=== PATIENT | female | born 1955 | race African-American/Black ===

== ENCOUNTER 2017-09-08 22:22 | Inpatient (IN) ==
[2017-09-08] MEDS ORDERED: AZITHROMYCIN INJ 500 MG in SODIUM CHLORIDE 0.9% 250 ML IV STA (23:11)
[2017-09-08] MEDS ORDERED: SODIUM CHLORIDE 0.9% 500 ML IV ONE (23:26)
[2017-09-08] MEDS ORDERED: LEVALBUTEROL 1.25 MG/3 ML NEB RESP TX STA (23:26)
[2017-09-08] MEDS ORDERED: methylPREDNISolone SOD SUC 125 MG/2 ML VIAL IV STA (23:27)
[2017-09-08] MEDS ORDERED: AZITHROMYCIN 500 MG VIAL IV ONE (23:35)
[2017-09-09] MEDS ORDERED: ALBUTEROL/IPRATROPIUM 3 ML NEB RESP TX PRN (00:48)
[2017-09-09] MEDS ORDERED: GLUCAGON 1 MG VIAL IM PRN (00:48)
[2017-09-09] MEDS ORDERED: DEXTROSE 50% 25 GM/50 ML VIAL IV PRN (00:48)
[2017-09-09] MEDS ORDERED: MORPHINE 2 MG/1 ML SYRINGE IV PRN (00:48)
[2017-09-09] MEDS ORDERED: ACETAMINOPHEN 325 MG TABLET PO PRN (00:48)
[2017-09-09] MEDS ORDERED: ONDANSETRON 4 MG/2 ML VIAL IV PRN (00:48)
[2017-09-09] MEDS ORDERED: traZODone 50 MG TABLET PO PRN (00:48)
[2017-09-09] MEDS: ALBUTEROL/IPRATROPIUM 3 ML NEB RESP TX SCH ×4 (01:41→19:58)
[2017-09-09 01:46] LABS: Basophils # 0.1 10*3/uL (0.0-0.2); Basophils % 0.3 % (0.0-0.8); Hematocrit 34.5 VOL% (35.7-47.0); Immature Granulocytes % 2.9 %; Immature Granulocytes Absolute 1.11 #; Lymphocytes # 1.5 10*3/uL (1.4-4.0); Mean Corpuscular HGB Conc 31.9 GM/DL (32-36); Mean Corpuscular Hemoglobin 25 PG (27-34); Mean Corpuscular Volume 78.1 FL (87-102); Monocytes # 2.1 10*3/uL (0.11-0.8); Monocytes % 5.5 % (1.7-12.7); Neutrophils # 33.1 10*3/uL (1.4-7.4); Neutrophils % 87.3 % (38.7-73.9); Platelet Count 315 T/CUMM (130-400); Red Blood Count 4.42 MC/CUMM (3.8-5.5); Red Cell Distribution Width 15.2 % (9.3-17.3)
[2017-09-09 02:07] LABS: Lactic Acid 1.1 MMOL/L (0.4-2.0)
[2017-09-09 02:14] LABS: Albumin 2.8 G/DL (3.4-5.0); Bilirubin,Total 1.4 MG/DL (0.2-1.0); Calcium 7.8 MG/DL (8.5-10.1); Osmolality,Calculated 280.3 MOS/KG (273-304); Potassium 3.7 MMOL/L (3.5-5.1); Total Protein 5.9 G/DL (6.4-8.3)
[2017-09-09 02:19] LABS: Thyroid Stimulating Hormone 0.358 uIU/ml (0.358-3.74)
[2017-09-09] MEDS: SODIUM CHLORIDE 0.9% 1,000 ML IV SCH ×3 (02:24→20:47)
[2017-09-09] MEDS: PIPERACILLIN/TAZOBACTAM 3,375 MG in SODIUM CHLORIDE 0.9% 100 ML IV SCH ×3 (02:40→17:09)
[2017-09-09] MEDS ORDERED: LEVOFLOXACIN INJ 750 MG in PREMIX 1 EACH IV SCH (03:00)
[2017-09-09 03:46] LABS: Band Neutrophils 10 % (0-10); Lymphocytes 7 % (20-55); Segmented Neutrophils 76 % (50-85)
[2017-09-09 03:48] LABS: Burr Cells Few; Hypochromasia 1+; Platelet Estimate Normal; Target Cells Few
[2017-09-09 03:49] LABS: Total Cells Counted 100
[2017-09-09] MEDS: INSULIN REGULAR 100 UNIT/ML SUBCUT SCH ×4 (08:16→20:47)
[2017-09-09] MEDS: DOCUSATE SODIUM 100 MG CAPSULE PO SCH ×2 (09:28→20:47)
[2017-09-09] MEDS: ENOXAPARIN 100 MG/ML SYRINGE SUBCUT SCH ×2 (09:30→20:47)
[2017-09-09] MEDS: PANTOPRAZOLE 40 MG VIAL IV SCH (09:32)
[2017-09-09] MEDS: AZITHROMYCIN INJ 500 MG in SODIUM CHLORIDE 0.9% 250 ML IV SCH (09:36)
[2017-09-09] MEDS: methylPREDNISolone SOD SUC 40 MG/1 ML VIAL IV SCH (11:39)
[2017-09-10] MEDS: PIPERACILLIN/TAZOBACTAM 3,375 MG in SODIUM CHLORIDE 0.9% 100 ML IV SCH ×3 (00:01→18:34)
[2017-09-10] MEDS: methylPREDNISolone SOD SUC 40 MG/1 ML VIAL IV SCH ×2 (00:01→12:06)
[2017-09-10] MEDS: ALBUTEROL/IPRATROPIUM 3 ML NEB RESP TX SCH ×2 (01:57→07:08)
[2017-09-10] MEDS: SODIUM CHLORIDE 0.9% 1,000 ML IV SCH ×3 (03:24→19:34)
[2017-09-10 05:44] LABS: Calcium 8.1 MG/DL (8.5-10.1); Osmolality,Calculated 290.8 MOS/KG (273-304); Potassium 3.6 MMOL/L (3.5-5.1)
[2017-09-10 07:41] LABS: Basophils # 0.1 10*3/uL (0.0-0.2); Basophils % 0.2 % (0.0-0.8); Hematocrit 33.6 VOL% (35.7-47.0); Hemoglobin 10.5 GM/DL (12.0-16.0); Immature Granulocytes % 1.4 %; Immature Granulocytes Absolute 0.48 #; Lymphocytes # 1.1 10*3/uL (1.4-4.0); Lymphocytes % 3.3 % (21.3-54.2); Mean Corpuscular HGB Conc 31.3 GM/DL (32-36); Mean Corpuscular Hemoglobin 25 PG (27-34); Mean Corpuscular Volume 79.2 FL (87-102); Mean Platelet Volume 10.8 FL (9.6-12.0); Monocytes # 2.4 10*3/uL (0.11-0.8); Monocytes % 6.9 % (1.7-12.7); Neutrophils # 30.1 10*3/uL (1.4-7.4); Neutrophils % 88.2 % (38.7-73.9); Platelet Count 298 T/CUMM (130-400); Red Blood Count 4.24 MC/CUMM (3.8-5.5); Red Cell Distribution Width 16.1 % (9.3-17.3); White Blood Count 34.1 T/CUMM (4-12)
[2017-09-10 08:05] LABS: Lymphocytes 8 % (20-55); Segmented Neutrophils 86 % (50-85); Total Cells Counted 100
[2017-09-10 08:06] LABS: Burr Cells 2+; Platelet Estimate Adequate; Polychromasia Slight; Target Cells Slight
[2017-09-10] MEDS: INSULIN REGULAR 100 UNIT/ML SUBCUT SCH ×4 (08:17→20:46)
[2017-09-10] MEDS: ENOXAPARIN 100 MG/ML SYRINGE SUBCUT SCH ×2 (08:18→20:43)
[2017-09-10] MEDS: PANTOPRAZOLE 40 MG VIAL IV SCH (08:18)
[2017-09-10] MEDS: guaiFENesin/DM ER 600-30 MG TABLET PO PRN ×2 (08:18→20:39)
[2017-09-10] MEDS: DOCUSATE SODIUM 100 MG CAPSULE PO SCH ×2 (08:18→20:38)
[2017-09-10] MEDS ORDERED: ALBUTEROL 2.5 MG/3 ML NEB RESP TX SCH (11:30)
[2017-09-10] MEDS: METOPROLOL TARTRATE 25 MG TABLET PO SCH ×2 (12:39→20:38)
[2017-09-10] MEDS: AZITHROMYCIN INJ 500 MG in SODIUM CHLORIDE 0.9% 250 ML IV SCH (13:13)
[2017-09-10] MEDS: hydrOXYzine HCL 25 MG TABLET PO SCH ×2 (15:10→20:38)
[2017-09-10] MEDS: ALBUTEROL 2.5 MG/3 ML NEB RESP TX SCH (15:22)
[2017-09-10] MEDS: ALPRAZolam 0.5 MG TABLET PO SCH (20:39)
[2017-09-10] MEDS: METOCLOPRAMIDE 10 MG TABLET PO SCH (20:39)
[2017-09-10] MEDS: CLOTRIMAZOLE 1% CREAM 15 GM TUBE TOP SCH (20:52)
[2017-09-10] MEDS: PREGABALIN 50 MG CAPSULE PO SCH (21:05)
[2017-09-11] MEDS: methylPREDNISolone SOD SUC 40 MG/1 ML VIAL IV SCH (01:28)
[2017-09-11] MEDS: PIPERACILLIN/TAZOBACTAM 3,375 MG in SODIUM CHLORIDE 0.9% 100 ML IV SCH ×3 (01:29→19:25)
[2017-09-11] MEDS: ALBUTEROL 2.5 MG/3 ML NEB RESP TX SCH ×4 (01:39→22:39)
[2017-09-11] MEDS: SODIUM CHLORIDE 0.9% 1,000 ML IV SCH ×3 (04:01→16:50)
[2017-09-11 04:38] LABS: Basophils % 0.2 % (0.0-0.8); Hemoglobin 10.1 GM/DL (12.0-16.0); Immature Granulocytes % 2.1 %; Immature Granulocytes Absolute 0.51 #; Lymphocytes # 1.2 10*3/uL (1.4-4.0); Mean Corpuscular HGB Conc 31.6 GM/DL (32-36); Mean Corpuscular Hemoglobin 25 PG (27-34); Mean Platelet Volume 10.9 FL (9.6-12.0); Monocytes % 4.1 % (1.7-12.7); NRBC # 0.02 10*3/uL; Neutrophils % 88.6 % (38.7-73.9); Platelet Count 307 T/CUMM (130-400); Red Cell Distribution Width 16.1 % (9.3-17.3); White Blood Count 24.8 T/CUMM (4-12)
[2017-09-11 05:14] LABS: Calcium 7.7 MG/DL (8.5-10.1); Osmolality,Calculated 288.1 MOS/KG (273-304); Potassium 3.9 MMOL/L (3.5-5.1)
[2017-09-11 05:33] LABS: Lymphocytes 5 % (20-55); Segmented Neutrophils 93 % (50-85); Total Cells Counted 100
[2017-09-11 05:36] LABS: Platelet Estimate Normal; Polychromasia Slight; Target Cells Few
[2017-09-11] MEDS: METOCLOPRAMIDE 10 MG TABLET PO SCH ×2 (08:09→21:33)
[2017-09-11] MEDS: ENOXAPARIN 100 MG/ML SYRINGE SUBCUT SCH ×2 (08:09→21:33)
[2017-09-11] MEDS: LEVOTHYROXINE 50 MCG TABLET PO SCH (08:09)
[2017-09-11] MEDS: METOPROLOL TARTRATE 25 MG TABLET PO SCH ×2 (08:09→21:34)
[2017-09-11] MEDS: DOCUSATE SODIUM 100 MG CAPSULE PO SCH ×2 (08:09→21:34)
[2017-09-11] MEDS: MONTELUKAST 10 MG TABLET PO SCH (08:09)
[2017-09-11] MEDS: CETIRIZINE 10 MG TABLET PO SCH (08:09)
[2017-09-11] MEDS: hydrOXYzine HCL 25 MG TABLET PO SCH ×3 (08:09→21:34)
[2017-09-11] MEDS: PANTOPRAZOLE 40 MG VIAL IV SCH (08:09)
[2017-09-11] MEDS: ALPRAZolam 0.5 MG TABLET PO SCH ×2 (08:10→21:34)
[2017-09-11] MEDS: INSULIN REGULAR 100 UNIT/ML SUBCUT SCH ×4 (08:10→21:34)
[2017-09-11] MEDS: CLOTRIMAZOLE 1% CREAM 15 GM TUBE TOP SCH ×2 (08:10→22:20)
[2017-09-11] MEDS ORDERED: VILANTEROL INH SCH (09:00)
[2017-09-11] MEDS ORDERED: FLUTICASONE INH SCH (09:00)
[2017-09-11] MEDS: INSULIN GLARGINE 100 UNIT/ML SUBCUT SCH (13:27)
[2017-09-11] MEDS: amLODIPine 10 MG TABLET PO SCH (16:49)
[2017-09-11] MEDS: AZITHROMYCIN INJ 500 MG in SODIUM CHLORIDE 0.9% 250 ML IV SCH (16:49)
[2017-09-11] MEDS: PREGABALIN 50 MG CAPSULE PO SCH (21:35)
[2017-09-12] MEDS: PIPERACILLIN/TAZOBACTAM 3,375 MG in SODIUM CHLORIDE 0.9% 100 ML IV SCH ×2 (01:59→10:32)
[2017-09-12] MEDS: SODIUM CHLORIDE 0.9% 1,000 ML IV SCH ×3 (03:16→17:33)
[2017-09-12 06:15] LABS: Basophils # 0.1 10*3/uL (0.0-0.2); Basophils % 0.7 % (0.0-0.8); Eosinophils # 0.2 10*3/uL (0.0-0.87); Eosinophils % 0.9 % (0.00-10.9); Hemoglobin 11.4 GM/DL (12.0-16.0); Immature Granulocytes % 4.2 %; Immature Granulocytes Absolute 0.75 #; Lymphocytes # 4.2 10*3/uL (1.4-4.0); Lymphocytes % 23.5 % (21.3-54.2); Mean Corpuscular HGB Conc 32.6 GM/DL (32-36); Mean Corpuscular Hemoglobin 25 PG (27-34); Mean Corpuscular Volume 76.4 FL (87-102); Mean Platelet Volume 10.5 FL (9.6-12.0); Monocytes # 1.8 10*3/uL (0.11-0.8); Monocytes % 9.9 % (1.7-12.7); NRBC # 0.04 10*3/uL; Neutrophils # 10.9 10*3/uL (1.4-7.4); Neutrophils % 60.8 % (38.7-73.9); Platelet Count 371 T/CUMM (130-400); Red Blood Count 4.58 MC/CUMM (3.8-5.5); Red Cell Distribution Width 15.9 % (9.3-17.3)
[2017-09-12 06:35] LABS: Eosinophils 1 % (0-10); Giant Platelets Few; Hypochromasia 1+; Lymphocytes 34 % (20-55); Platelet Estimate Adequate; Segmented Neutrophils 57 % (50-85); Total Cells Counted 100
[2017-09-12 06:45] LABS: Calcium 8.6 MG/DL (8.5-10.1); Osmolality,Calculated 284.8 MOS/KG (273-304); Potassium 3.1 MMOL/L (3.5-5.1)
[2017-09-12] MEDS: ALBUTEROL 2.5 MG/3 ML NEB RESP TX SCH ×2 (08:18→14:16)
[2017-09-12] MEDS ORDERED: methylPREDNISolone SOD SUC 40 MG/1 ML VIAL IV SCH (09:00)
[2017-09-12] MEDS: DOCUSATE SODIUM 100 MG CAPSULE PO SCH ×2 (09:59→21:19)
[2017-09-12] MEDS: METOPROLOL TARTRATE 25 MG TABLET PO SCH (09:59)
[2017-09-12] MEDS: hydrOXYzine HCL 25 MG TABLET PO SCH ×3 (09:59→21:20)
[2017-09-12] MEDS: MONTELUKAST 10 MG TABLET PO SCH (10:00)
[2017-09-12] MEDS: METOCLOPRAMIDE 10 MG TABLET PO SCH ×2 (10:00→21:20)
[2017-09-12] MEDS: LEVOTHYROXINE 50 MCG TABLET PO SCH (10:00)
[2017-09-12] MEDS: ALPRAZolam 0.5 MG TABLET PO SCH ×2 (10:00→21:19)
[2017-09-12] MEDS: CLOTRIMAZOLE 1% CREAM 15 GM TUBE TOP SCH ×2 (10:00→21:22)
[2017-09-12] MEDS: amLODIPine 10 MG TABLET PO SCH (10:00)
[2017-09-12] MEDS: CETIRIZINE 10 MG TABLET PO SCH (10:01)
[2017-09-12] MEDS: ENOXAPARIN 100 MG/ML SYRINGE SUBCUT SCH (10:06)
[2017-09-12] MEDS: INSULIN GLARGINE 100 UNIT/ML SUBCUT SCH (10:10)
[2017-09-12] MEDS: PANTOPRAZOLE 40 MG VIAL IV SCH (10:18)
[2017-09-12] MEDS: INSULIN REGULAR 100 UNIT/ML SUBCUT SCH ×4 (10:33→21:18)
[2017-09-12] MEDS ORDERED: LEVALBUTEROL 0.63 MG/3 ML NEB RESP TX PRN (13:09)
[2017-09-12] MEDS ORDERED: METOPROLOL TARTRATE 25 MG TABLET PO SCH (13:10)
[2017-09-12] MEDS ORDERED: hydrALAZINE 20 MG/1 ML VIAL IV PRN (14:03)
[2017-09-12] MEDS: AZITHROMYCIN INJ 500 MG in SODIUM CHLORIDE 0.9% 250 ML IV SCH (14:12)
[2017-09-12] MEDS: LEVOFLOXACIN 750 MG TABLET PO SCH (15:27)
[2017-09-12] MEDS: CARVEDILOL 12.5 MG TABLET PO SCH (21:20)
[2017-09-12] MEDS: PREGABALIN 50 MG CAPSULE PO SCH (21:23)
[2017-09-13 04:48] LABS: Basophils # 0.1 10*3/uL (0.0-0.2); Basophils % 0.5 % (0.0-0.8); Eosinophils # 0.1 10*3/uL (0.0-0.87); Eosinophils % 0.4 % (0.00-10.9); Hemoglobin 10.6 GM/DL (12.0-16.0); Lymphocytes # 3.4 10*3/uL (1.4-4.0); Lymphocytes % 18.8 % (21.3-54.2); Mean Corpuscular HGB Conc 32.1 GM/DL (32-36); Mean Corpuscular Hemoglobin 25 PG (27-34); Mean Corpuscular Volume 76.9 FL (87-102); Mean Platelet Volume 10.2 FL (9.6-12.0); Monocytes # 1.9 10*3/uL (0.11-0.8); Monocytes % 10.7 % (1.7-12.7); NRBC # 0.05 10*3/uL; Neutrophils # 11.6 10*3/uL (1.4-7.4); Neutrophils % 64.6 % (38.7-73.9); Platelet Count 357 T/CUMM (130-400); Red Blood Count 4.29 MC/CUMM (3.8-5.5); Red Cell Distribution Width 15.4 % (9.3-17.3)
[2017-09-13 05:10] LABS: Band Neutrophils 2 % (0-10); Eosinophils 2 % (0-10); Hypochromasia 1+; Lymphocytes 20 % (20-55); Myelocytes 1 %; Platelet Estimate Adequate; Segmented Neutrophils 69 % (50-85); Total Cells Counted 100
[2017-09-13 05:11] LABS: Giant Platelets Few; Macrocytosis Slight; Ovalocytes Slight; Polychromasia Slight; Target Cells Few
[2017-09-13 05:20] LABS: Calcium 8.6 MG/DL (8.5-10.1); Potassium 3.2 MMOL/L (3.5-5.1)
[2017-09-13] MEDS: INSULIN REGULAR 100 UNIT/ML SUBCUT SCH ×3 (08:28→16:43)
[2017-09-13] MEDS: DOCUSATE SODIUM 100 MG CAPSULE PO SCH (08:29)
[2017-09-13] MEDS: CARVEDILOL 12.5 MG TABLET PO SCH (08:29)
[2017-09-13] MEDS: hydrOXYzine HCL 25 MG TABLET PO SCH ×2 (08:29→14:21)
[2017-09-13] MEDS: CLOTRIMAZOLE 1% CREAM 15 GM TUBE TOP SCH (08:30)
[2017-09-13] MEDS: LEVOFLOXACIN 750 MG TABLET PO SCH (08:30)
[2017-09-13] MEDS: amLODIPine 10 MG TABLET PO SCH (08:30)
[2017-09-13] MEDS: INSULIN GLARGINE 100 UNIT/ML SUBCUT SCH (08:30)
[2017-09-13] MEDS: PANTOPRAZOLE 40 MG VIAL IV SCH (08:31)
[2017-09-13] MEDS: CETIRIZINE 10 MG TABLET PO SCH (08:32)
[2017-09-13] MEDS: ALPRAZolam 0.5 MG TABLET PO SCH (08:32)
[2017-09-13] MEDS: METOCLOPRAMIDE 10 MG TABLET PO SCH (08:32)
[2017-09-13] MEDS: LEVOTHYROXINE 50 MCG TABLET PO SCH (08:32)
[2017-09-13] MEDS: MONTELUKAST 10 MG TABLET PO SCH (08:32)
[2017-09-13] MEDS ORDERED: POTASSIUM CHLORIDE 10 MEQ TABLET PO SCH (09:00)
[2017-09-13] MEDS ORDERED: ENOXAPARIN 40 MG/0.4 ML SYRINGE SUBCUT SCH (09:00)
[2017-09-13] MEDS ORDERED: predniSONE 20 MG TABLET PO SCH (09:00)
[2017-09-13 15:45] VITALS: BP 152/84
== END 2017-09-13 17:23 | disposition home or self-care (01) | DRG 194 ==
LOC: EDUNIT# → EDBD → N.ED 22:22 → SUATTDRO 23:27 → N.EDINP 23:27 → N.ICU 09-09 00:46 → N.TELES 09-11 14:20
PROVIDERS: ADMIT Internal Medicine; ATTEND Internal Medicine